=== PATIENT | male | born 1950 | race Caucasian/White ===

== ENCOUNTER → 2017-01-26 | Outpatient (CLI) | payer OTHER ==
--- NOTE | 2017-01-26 12:22 | DI ---
Indication: ITS.REASON: DX TESTING, pacemaker placed in September, patient denies symptoms Procedure: CHEST, PA LATERAL: Encounter: Initial Comparison: None Technique: PA and lateral radiographs of the chest were obtained. Findings: Life support devices: Left pectoral dual-chamber pacer device in place. Lungs and airways: Mildly low lung volumes. No focal airspace consolidation. Normal pulmonary vasculature. Pleura: No pleural effusion or pneumothorax. Heart and mediastinum: Aortic atherosclerosis. The cardiomediastinal silhouette is otherwise within normal limits. Osseous structures and soft tissues: No acute osseous abnormality is seen. Degenerative arthrosis of the AC joints. Impression: No acute cardiopulmonary process. .
--- NOTE | 2017-01-26 15:04 | ECHOF ---
ECHOCARDIOGRAM DATE OF PROCEDURE January 26, 2017 This is a two-dimensional echo with spectral Doppler, color-flow and M-mode. It was obtained in a patient with hypertension and pacemaker. Left atrium is mildly dilated. Left ventricular end-diastolic dimension is normal. Left ventricular wall thickness is normal. LV systolic function is normal with ejection fraction around 74%. Right atrium is normal. Right ventricle is normal. Aortic root dimension is normal. Mitral valve is morphologically normal with mild mitral regurgitation. Aortic valve is structurally normal with mild aortic insufficiency. Tricuspid valve shows mild tricuspid regurgitation with normal estimated pulmonary artery systolic pressure of 14. Pulmonary valve shows no pulmonary insufficiency. There is no pericardial effusion. Pacemaker is present in the right heart. IMPRESSION 1. Normal LV systolic function with ejection fraction of 74%. 2. Mild mitral regurgitation. 3. Mild aortic insufficiency. 4. Mild tricuspid regurgitation with estimated pulmonary artery systolic pressure of 14. 5. Pacemaker present in right heart. 6. Mild left atrial dilation. MTDD
== END ==
LOC: IMA 11:51
DX: Z02.9 Encounter for administrative examinations, unspecified (principal); I08.3 Combined rheumatic disorders of mitral, aortic and tricuspid valves; Z95.0 Presence of cardiac pacemaker
CPT/HCPCS: 93306